=== PATIENT | female | born 1945 | race Caucasian/White ===

== ENCOUNTER 2023-05-14 13:30 | Observation (INO) | payer MEDICARE ==
[2023-05-14 13:58] VITALS: BMI 24.7
[2023-05-21] MEDS ORDERED: Thrombin 5000 UNITS/5 ML VIAL ONE (06:31)
[2023-05-21] MEDS ORDERED: EPINEPHrine 1 MG/ML VIAL ONE (06:31)
[2023-05-21] MEDS ORDERED: Bupivacaine PF 0.5% 30 ML VIAL ONE ×2 (06:31→06:32)
[2023-05-21] MEDS ORDERED: Dexmedetomidine 200 MCG/2 ML VIAL ONE (06:34)
[2023-05-21] MEDS ORDERED: Fentanyl 250 MCG/5 ML VIAL ONE (06:34)
[2023-05-21] MEDS ORDERED: Sevoflurane 250 ML INH ANEST BOTTLE ONE (06:35)
[2023-05-21] MEDS ORDERED: Famotidine/PF 20 mg/2ml Vial ONE (06:35)
[2023-05-21] MEDS ORDERED: PROPOFOL 200 MG/20 ML VIAL ONE (07:18)
[2023-05-21] MEDS ORDERED: Ondansetron PF 4 MG/2 ML Vial ONE ×3 (07:18→12:33)
[2023-05-21] MEDS ORDERED: ePHEDrine Sulfate 50 MG/10 ML VIAL ONE (07:18)
[2023-05-21] MEDS ORDERED: Lidocaine 1% PF 5 ML VIAL ONE (07:18)
[2023-05-21] MEDS ORDERED: Rocuronium Bromide 10 MG/ML (10ML VIAL) ONE (07:18)
[2023-05-21] MEDS ORDERED: Dexamethasone 20 MG/5 ML VIAL ONE (07:18)
[2023-05-21] MEDS ORDERED: MINERAL OIL/WHITE PETROLATUM 3.5 GM TUBE ONE (07:19)
[2023-05-21] MEDS ORDERED: HYDROmorphone 2 MG/ML VIAL SLOW IVP PRN (10:20)
[2023-05-21] MEDS ORDERED: Meperidine HCl/PF 25 MG/ML VIAL SLOW IVP PRN (10:20)
[2023-05-21] MEDS ORDERED: Ondansetron HCl/PF 4 MG/2 ML Vial IVP PRN (10:20)
[2023-05-21] MEDS ORDERED: Promethazine HCl 25 MG/ML VIAL IM PRN (10:20)
[2023-05-21] MEDS ORDERED: SUGAMMADEX SODIUM 200 MG/2 ML VIAL ONE (10:46)
[2023-05-21] MEDS ORDERED: Morphine 2 MG/ML VIAL SLOW IVP PRN (11:52)
[2023-05-21] MEDS ORDERED: HYDROcodone/Acetaminophen 10/325 mg Tablet PO PRN ×2 (11:52)
[2023-05-21] MEDS ORDERED: Mag-Al 1200 mg/1200 mg/30 ML UDCUP PO PRN (11:52)
[2023-05-21] MEDS ORDERED: diphenhydrAMINE 50 MG/ML VIAL IVP PRN (11:52)
[2023-05-21] MEDS ORDERED: fentaNYL 50 mcg/mL 1 mL Vial ONE ×3 (11:58→13:01)
[2023-05-21] MEDS: Sodium Chloride 0.9% 1,000 ML IV SCH (14:37)
[2023-05-21] MEDS: Morphine 4 MG/ML VIAL SLOW IVP PRN ×3 (14:51→21:37)
[2023-05-21] MEDS ORDERED: Metoclopramide HCl 10 MG TAB PO PRN (16:02)
[2023-05-21] MEDS: CEFAZOLIN 2 GM in Sodium Chloride 0.9% 100 ML IVPB SCH ×2 (16:34→23:30)
[2023-05-21] MEDS: Metoclopramide HCl 10 MG/2 ML VIAL IVP PRN (16:48)
[2023-05-21] MEDS ORDERED: Acetaminophen 325 MG TAB PO SCH (18:45)
[2023-05-21] MEDS ORDERED: Latanoprost 0.005% Ophth Soln 2.5 ml Bottle EA EYE SCH (21:00)
[2023-05-21] MEDS: Ondansetron PF 4 MG/2 ML Vial IVP PRN (23:30)
[2023-05-22] MEDS: Sodium Chloride 0.9% 1,000 ML IV SCH ×2 (02:35→15:58)
[2023-05-22] MEDS ORDERED: Ketorolac Tromethamine 30 MG/ML VIAL IVP SCH ×2 (08:30→15:00)
[2023-05-22] MEDS ORDERED: Timolol 0.5% Ophth Soln 5 ml Bottle EA EYE SCH (09:00)
[2023-05-22] MEDS: CEFAZOLIN 2 GM in Sodium Chloride 0.9% 100 ML IVPB SCH (09:25)
[2023-05-22] MEDS: Ondansetron PF 4 MG/2 ML Vial IVP PRN (09:26)
[2023-05-22] MEDS: Metoclopramide HCl 10 MG/2 ML VIAL IVP PRN (12:17)
[2023-05-22] MEDS ORDERED: Sodium Chloride 0.9% 1,000 ML IV SCH (14:45)
[2023-05-22 15:52] VITALS: TEMP 98.1
[2023-05-22 17:38] VITALS: BP 131/76
== END 2023-05-22 19:15 | disposition home or self-care (01) ==
LOC: INTOOBSV 05-21 05:56 → SURG A 05-21 05:56
PROVIDERS: ADMIT Neurological Surgery; ATTEND Neurological Surgery
PROC: 0SG10A0 Fusion of 2 or more Lumbar Vertebral Joints with Interbody Fusion Device, Anterior Approach, Anterior Column, Open Approach (ICD-10-PCS; principal; 2023-05-21)
DX: M43.16 Spondylolisthesis, lumbar region (principal); M54.16 Radiculopathy, lumbar region; F41.9 Anxiety disorder, unspecified; G89.4 Chronic pain syndrome; Z98.1 Arthrodesis status; Z96.651 Presence of right artificial knee joint; Z90.710 Acquired absence of both cervix and uterus; Z90.49 Acquired absence of other specified parts of digestive tract; Z79.899 Other long term (current) drug therapy; Z88.5 Allergy status to narcotic agent
CPT/HCPCS: 20930; 20936; 22612; 22840; 63042; 96374; 96375 ×2; 96376 ×2; 97110; 97116; C1713 ×4; C1889 ×2; G0378 ×2; J0171; J3010; J1100; J1885; J2270; J2272; J2405; J2704; J2765; J3490; J7050; S0020; S0028

== ENCOUNTER 2023-07-28 05:37 | Day surgery (SDC) | payer MEDICARE ==
[2023-07-21 09:01] VITALS: BMI 24.7
[2023-07-28] MEDS ORDERED: CEFAZOLIN 2 GM VIAL ONE ×2 (06:38→10:53)
[2023-07-28] MEDS ORDERED: Sodium Chloride 0.9% 100 ML ONE ×2 (06:39→10:53)
[2023-07-28] MEDS ORDERED: Thrombin 5000 UNITS/5 ML VIAL ONE (06:50)
[2023-07-28] MEDS ORDERED: Lidocaine 2% PF 5 ML VIAL ONE (07:06)
[2023-07-28] MEDS ORDERED: fentaNYL PF 100 MCG/2 ML SYRINGE ONE (07:06)
[2023-07-28] MEDS ORDERED: PROPOFOL 20 ML ONE (07:06)
[2023-07-28] MEDS ORDERED: Rocuronium Bromide 10 MG/ML (10ML VIAL) ONE (07:07)
[2023-07-28] MEDS ORDERED: Ketorolac Tromethamine 30 MG (1 mL) VIAL ONE (07:33)
[2023-07-28] MEDS ORDERED: Dexamethasone 20 MG/5 ML VIAL ONE (07:33)
[2023-07-28] MEDS ORDERED: Ondansetron PF 4 MG/2 ML Vial ONE (07:33)
[2023-07-28] MEDS ORDERED: SUGAMMADEX SODIUM 200 MG/2 ML VIAL ONE (08:21)
[2023-07-28] MEDS ORDERED: fentaNYL 50 mcg/mL 1 mL Vial ONE ×2 (08:46→08:58)
[2023-07-28] MEDS ORDERED: Cyclobenzaprine 10 MG TAB ONE (10:07)
== END 2023-07-28 12:50 | disposition home or self-care (01) ==
LOC: SDC/OP 05:37 → UNDODISIN 12:50 → SDC/OP 12:50 → EDSTATUS 13:00
PROVIDERS: ATTEND Neurological Surgery
PROC: 0RG40K0 Fusion of Cervicothoracic Vertebral Joint with Nonautologous Tissue Substitute, Anterior Approach, Anterior Column, Open Approach (ICD-10-PCS; principal; 2023-07-28)
PROC: 0RG20A0 Fusion of 2 or more Cervical Vertebral Joints with Interbody Fusion Device, Anterior Approach, Anterior Column, Open Approach (ICD-10-PCS; 2023-07-28)
DX: M50.123 Cervical disc disorder at C6-C7 level with radiculopathy (principal); M48.02 Spinal stenosis, cervical region; F41.9 Anxiety disorder, unspecified; G89.29 Other chronic pain; Z79.899 Other long term (current) drug therapy; Z90.710 Acquired absence of both cervix and uterus; Z90.49 Acquired absence of other specified parts of digestive tract; Z96.651 Presence of right artificial knee joint; Z98.890 Other specified postprocedural states; Z88.5 Allergy status to narcotic agent
CPT/HCPCS: 20930; 20936; 22551; 22552; 22845; 22853 ×2; C1713 ×4; C1889 ×2; J3010; J1100; J1790; J1885; J2001; J2405; J2704; J3490